=== PATIENT | female | born 1960 | race Caucasian/White ===

== ENCOUNTER 2019-11-10 17:17 | Observation (INO) | payer OTHER ==
[2019-11-10] MEDS ORDERED: SODIUM CHLORIDE 0.9% 1,000 ML IV STA (17:57)
[2019-11-10] MEDS ORDERED: IPRATROPIUM-ALBUTEROL 3 ML NEB INHALATION STA ×2 (17:57→20:48)
[2019-11-10] MEDS ORDERED: AZITHROMYCIN 500 MG in SODIUM CHLORIDE 0.9% 250 ML IVPB STA (17:57)
[2019-11-10] MEDS ORDERED: ACETAMINOPHEN TAB 325 MG TAB PO STA ×2 (17:57→22:49)
[2019-11-10] MEDS ORDERED: methylPREDNISolone SOD SUCCI 125 MG/2 ML VIAL IV STA (17:57)
--- NOTE | 2019-11-10 17:59 | ED ---
URI HPI - General Chief Complaint: Upper Respiratory Infection Stated Complaint: sinus infection,fever Time Seen by Provider: 11/10/19 17:33 Source: patient, RN notes reviewed, old records reviewed Mode of arrival: ambulatory Limitations: no limitations - History of Present Illness Initial Comments: This is a 59-year-old female to the ER for evaluation who presents today for evaluation regarding regarding upper respiratory infection cough and congestion history of COPD also febrile yesterday. No sick contacts no travel history no chest pain. Patient does feel weak and dehydrated MD Complaint: fever, cough, sore throat, nasal congestion, sinus pain -: days(s) Severity: moderate Severity scale (1-10): 7 Quality: burning Consistency: constant Improves With: nothing Worsens With: nothing Associated Symptoms: fever, chills, myalgias, rhinorrhea, sore throat Treatments Prior to Arrival: none - Related Data Home Medications Medication Instructions Recorded Confirmed Cyanocobalamin [Vitamin B-12] 1,000 mcg PO DAILY 10/19/13 10/20/13 HYDROcodone/APAP 10-325MG [[place] 1 tab PO DIRECTED 10/19/13 10/20/13 10-325] LORazepam [Ativan] 0.5 mg PO HS PRN 10/19/13 10/20/13 Methylphenidate HCl [Concerta] 72 mg PO DAILY 10/19/13 10/20/13 Morphine Sulfate ER [Ms Contin] 60 mg PO BID 10/19/13 10/20/13 Naproxen [Naprosyn] 375 mg PO TID 10/19/13 10/20/13 Polyethylene Glycol 3350 [Miralax] 17 gram PO DIRECTED 10/19/13 10/20/13 Pregabalin [Lyrica] 200 mg PO TID 10/19/13 10/20/13 Topiramate [Topamax] 25 mg PO BID 10/19/13 10/20/13 Venlafaxine HCl [Effexor] 225 mg PO DAILY 10/19/13 10/20/13 Verapamil HCl [Verapamil ER] 180 mg PO DAILY 10/19/13 10/19/13 lamoTRIgine [LaMICtal] 200 mg PO BID 10/19/13 10/19/13 Allergies Allergy/AdvReac Type Severity Reaction Status Date / Time No Known Allergies Allergy Verified 11/10/19 17:21 Review of Systems ROS Statement: Those systems with pertinent positive or pertinent negative responses have been documented in the HPI. ROS Other: All systems not noted in ROS Statement are negative. Past Medical History Past Medical History: Fibromyalgia, GERD/Reflux, Hypertension, Osteoarthritis (OA), Rheumatoid Arthritis (RA) Additional Past Medical History / Comment(s): ddd, osteoporosis History of Any Multi-Drug Resistant Organisms: None Reported Past Surgical History: Back Surgery Additional Past Surgical History / Comment(s): vaginal wall repair, abd tumor removed Past Psychological History: Anxiety, Bipolar, Depression Smoking Status: Current every day smoker Past Alcohol Use History: Occasional Past Drug Use History: None Reported General Exam Limitations: no limitations General appearance: alert, in no apparent distress, anxious Head exam: Present: atraumatic, normocephalic, normal inspection Eye exam: Present: normal appearance, PERRL, EOMI. Absent: scleral icterus, conjunctival injection, periorbital swelling ENT exam: Present: normal exam, mucous membranes moist Neck exam: Present: normal inspection. Absent: tenderness, meningismus, lymphadenopathy Respiratory exam: Present: normal lung sounds bilaterally. Absent: respiratory distress, wheezes, rales, rhonchi, stridor Cardiovascular Exam: Present: regular rate, normal rhythm, normal heart sounds. Absent: systolic murmur, diastolic murmur, rubs, gallop, clicks GI/Abdominal exam: Present: soft, normal bowel sounds. Absent: distended, tenderness, guarding, rebound, rigid Extremities exam: Present: normal inspection, full ROM, normal capillary refill. Absent: tenderness, pedal edema, joint swelling, calf tenderness Back exam: Present: normal inspection Neurological exam: Present: alert, oriented X3, CN II-XII intact Psychiatric exam: Present: normal affect, normal mood Skin exam: Present: warm, dry, intact, normal color. Absent: rash Course Vital Signs 11/10/19 11/10/19 11/10/19 17:21 18:24 18:48 Temperature 98 F Pulse Rate 64 59 L Respiratory 18 20 18 Rate Blood Pressure 114/70 O2 Sat by Pulse 97 Oximetry 11/10/19 11/10/19 11/10/19 18:55 19:24 20:33 Temperature 97.7 F Pulse Rate 60 70 68 Respiratory 16 20 20 Rate Blood Pressure 95/66 O2 Sat by Pulse 97 96 Oximetry - Reevaluation(s) Reevaluation #1: 11/10/19 19:28 Medical records reviewed Reevaluation #2: 11/10/19 20:47 Patient does not feel well still short of breath Reevaluation #3: 11/10/19 20:47 Spoke patient regarding findings, questions answered Medical Decision Making - Medical Decision Making 59 female Leticia with persistent shortness of breath, patient will be admitted f or breathing treatments, COPD exacerbation rule out CO VID - Lab Data Result diagrams: 11/10/19 18:26 11/10/19 18:43 Lab Results 11/10/19 11/10/19 11/10/19 Range/Units 18:26 18:26 18:43 WBC 16.0 H (3.8-10.6) k/uL RBC 5.15 (3.80-5.40) m/uL Hgb 14.9 (11.4-16.0) gm/dL Hct 45.7 (34.0-46.0) % MCV 88.8 (80.0-100.0) fL MCH 29.0 (25.0-35.0) pg MCHC 32.7 (31.0-37.0) g/dL RDW 13.0 (11.5-15.5) % Plt Count 232 (150-450) k/uL Neutrophils % 78 % Lymphocytes % 14 % Monocytes % 4 % Eosinophils % 2 % Basophils % 1 % Neutrophils # 12.5 H (1.3-7.7) k/uL Lymphocytes # 2.3 (1.0-4.8) k/uL Monocytes # 0.7 (0-1.0) k/uL Eosinophils # 0.3 (0-0.7) k/uL Basophils # 0.1 (0-0.2) k/uL PT 9.7 (9.0-12.0) sec INR 0.9 (<1.2) APTT 23.3 (22.0-30.0) sec Sodium 137 (137-145) mmol/L Potassium 4.5 (3.5-5.1) mmol/L Chloride 105 (98-107) mmol/L Carbon Dioxide 25 (22-30) mmol/L Anion Gap 7 mmol/L BUN 14 (7-17) mg/dL Creatinine 0.56 (0.52-1.04) mg/dL Est GFR (CKD-EPI)AfAm >90 (>60 ml/min/1.73 sqM) Est GFR (CKD-EPI)NonAf >90 (>60 ml/min/1.73 sqM) Glucose 102 H (74-99) mg/dL Calcium 9.8 (8.4-10.2) mg/dL Magnesium 2.3 (1.6-2.3) mg/dL Total Bilirubin 0.6 (0.2-1.3) mg/dL AST 25 (14-36) U/L ALT 8 (4-34) U/L Alkaline Phosphatase 141 H (38-126) U/L Lactate Dehydrogenase 603 (313-618) U/L C-Reactive Protein 156.1 H (<10.0) mg/L Total Protein 7.7 (6.3-8.2) g/dL Albumin 4.5 (3.5-5.0) g/dL - EKG Data -: EKG Interpreted by Me (EKG is sinus bradycardia 53 ND 140 QRS 82 QTC 429) - Radiology Data Radiology results: report reviewed (Chest x-rays negative for acute disease), image reviewed Disposition Clinical Impression: Viral infection, Acute upper respiratory infection, Acute exacerbation of chronic obstructive pulmonary disease (COPD) Narrative: ro COVID Disposition: ADMITTED IP TO THIS HOSP Condition: Fair Is patient prescribed a controlled substance at d/c from ED?: No Referrals: Ryan Harding MD [Primary Care Provider] - 1-2 days
[2019-11-10] MEDS: SODIUM CHLORIDE 0.9% 1,000 ML IV STA ×2 (18:21→21:14)
[2019-11-10 18:46] LABS: Basophils # (A) 0.1 k/uL (0-0.2); Basophils % (A) 1 %; Eosinophils # (A) 0.3 k/uL (0-0.7); Eosinophils % (A) 2 %; HCT 45.7 % (34.0-46.0); HGB 14.9 gm/dL (11.4-16.0); Lymphocytes # (A) 2.3 k/uL (1.0-4.8); Lymphocytes % (A) 14 %; MCHC 32.7 g/dL (31.0-37.0); MCV 88.8 fL (80.0-100.0); Mean Platelet Volume 8.5; Monocytes # (A) 0.7 k/uL (0-1.0); Monocytes % (A) 4 %; Neutrophils # (A) 12.5 k/uL (1.3-7.7); Neutrophils % (A) 78 %; Platelet Count 232 k/uL (150-450); RBC 5.15 m/uL (3.80-5.40)
[2019-11-10 18:58] LABS: INR 0.9 (<1.2); Partial Thromboplastin Time 23.3 sec (22.0-30.0); Prothrombin Time 9.7 sec (9.0-12.0)
[2019-11-10 19:00] LABS: ALT 8 U/L (4-34); AST 25 U/L (14-36); African American GFR (CKD) >90 (>60 ml/min/1.73 sqM); Albumin 4.5 g/dL (3.5-5.0); Alkaline Phosphatase 141 U/L (38-126); Anion Gap 7 mmol/L; Blood Urea Nitrogen 14 mg/dL (7-17); Calcium 9.8 mg/dL (8.4-10.2); Carbon Dioxide 25 mmol/L (22-30); Chloride 105 mmol/L (98-107); Glucose 102 mg/dL (74-99); LDH 603 U/L (313-618); Magnesium 2.3 mg/dL (1.6-2.3); Non-African American GFR(CKD) >90 (>60 ml/min/1.73 sqM); Potassium 4.5 mmol/L (3.5-5.1); Sodium 137 mmol/L (137-145); Total Bilirubin 0.6 mg/dL (0.2-1.3); Total Protein 7.7 g/dL (6.3-8.2)
[2019-11-10 19:10] LABS: C Reactive Protein 156.1 mg/L (<10.0)
--- NOTE | 2019-11-10 19:48 | XR ---
EXAMINATION TYPE: XR chest 1V portable DATE OF EXAM: 11/10/2019 COMPARISON: 02/29/2008 HISTORY: Pneumonia. Fever. TECHNIQUE: FINDINGS: Heart and mediastinum are normal. Lungs are clear. Diaphragm is normal. Bony thorax is inta ct. Pulmonary vascularity is normal. IMPRESSION: Normal chest. No adverse change.
[2019-11-10] MEDS ORDERED: PNEUMONIA PROTOCOL UTILIZED 1 EACH MISC PO PRN (20:39)
[2019-11-10] MEDS ORDERED: IPRATROPIUM-ALBUTEROL 3 ML NEB INHALATION PRN (20:48)
[2019-11-11] MEDS: methylPREDNISolone SOD SUCCI 125 MG/2 ML VIAL IV SCH ×5 (00:29→23:51)
[2019-11-11 02:57] LABS: Ferritin 112.8 ng/mL (10.0-291.0)
[2019-11-11] MEDS: SODIUM CHLORIDE 0.9% 1,000 ML IV SCH ×3 (03:53→17:29)
--- NOTE | 2019-11-11 07:54 | XR ---
EXAMINATION TYPE: XR chest 2V DATE OF EXAM: 11/11/2019 COMPARISON: Prior chest x-ray 11/10/2019 HISTORY: Pneumonia, shortness of breath and fevers TECHNIQUE: Frontal and lateral views of the chest are obtained. FINDINGS: The patient is rotated. There is no focal air space opacity, pleural effusion, or pneumotho rax seen. The cardiac silhouette size is within normal limits. The osseous structures are intact. IMPRESSION: No acute cardiopulmonary process.
[2019-11-11] MEDS ORDERED: traZODone HCL 50 MG TAB PO PRN (08:52)
[2019-11-11] MEDS ORDERED: ASCORBIC ACID 500 MG TAB PO PRN (08:52)
[2019-11-11] MEDS ORDERED: ONDANSETRON 4 MG TAB PO PRN (08:52)
[2019-11-11] MEDS: PANTOPRAZOLE 40 MG TABLET PO SCH (09:24)
[2019-11-11] MEDS: VERAPAMIL SR 240 MG TABLET.ER PO SCH (09:24)
[2019-11-11] MEDS: CHOLECALCIFEROL 1,000 UNIT TAB PO SCH (09:24)
[2019-11-11] MEDS: ACETAMINOPHEN TAB 325 MG TAB PO PRN ×3 (09:24→23:48)
[2019-11-11] MEDS: GABAPENTIN 300 MG CAP PO PRN ×2 (09:27→21:49)
[2019-11-11] MEDS ORDERED: HEPARIN SODIUM,PORCINE 5,000 UNIT/ML 1 ML VIAL SQ SCH (16:00)
[2019-11-11] MEDS ORDERED: AZITHROMYCIN 500 MG in SODIUM CHLORIDE 0.9% 250 ML IVPB SCH (18:00)
[2019-11-11] MEDS ORDERED: LACTULOSE 20 GM/30 ML CUP PO SCH (21:00)
[2019-11-11] MEDS: methocarbamoL 500 MG TAB PO PRN (21:49)
--- NOTE | 2019-11-11 22:35 | P.HPIM ---
History of Present Illness H&P Date: 11/11/19 Patient is a 59-year-old female with a known history of hypertension, fibromyalgia, rheumatoid arthritis, hypertension, chronic pain, anxiety/depression and bipolar disorder and so everyday smoker came to ER with complaints of shortness of breath. Patient does have cough with greenish sputum production and is getting worse for the past 1 week. Patient was also complaining of subjective fevers at home. Otherwise patient denied any recent travel no sick contacts. Patient is also complaining of generalized pain. Laboratory data showed WBC 16.0, hemoglobin 14.9 neutrophils 12.5 Alk phos 141 LDH 603 and CRP 156 Pro calcitonin 0.02 and coronavirus PCR not detected. Chest x-ray showed no acute cardiopulmonary process. EKG showed sinus bradycardia with heart rate 53 Review of Systems Constitutional: Patient does have subjective fevers and some chills. No general ized weakness or weight loss. Abdomen: Patient denied nausea vomiting and diarrhea and abdominal pain. Cardiovascular: Patient denies any chest pain or short of breath no palpitations. Respiratory: Cough with greenish sputum production and shortness of breath Neurologic: Patient denied any numbness or tingling headache. Musculoskeletal: Patient denies any complaints of joint swelling or deformity. Skin: Negative Psychiatric: Negative Endocrine: No heat or cold intolerance. No recent weight gain. Genitourinary: No dysuria or hematuria. All other 14 point ROS negative except the above Past Medical History Past Medical History: Fibromyalgia, GERD/Reflux, Hypertension, Osteoarthritis (OA), Rheumatoid Arthritis (RA) Additional Past Medical History / Comment(s): ddd, osteoporosis, diverticulosis History of Any Multi-Drug Resistant Organisms: None Reported Past Surgical History: Back Surgery Additional Past Surgical History / Comment(s): vaginal wall repair, abd tumor removed Past Anesthesia/Blood Transfusion Reactions: Previous Problems w/ Anesthesia Past Psychological History: Anxiety, Bipolar, Depression Smoking Status: Current every day smoker Past Alcohol Use History: Occasional Past Drug Use History: None Reported Medications and Allergies Home Medications Medication Instructions Recorded Confirmed Type Ascorbic Acid [Vitamin C] 500 mg PO DAILY PRN 11/10/19 11/10/19 History Buprenorphine HCl/Naloxone HCl 1 film SL BID PRN 11/10/19 11/10/19 History [Suboxone 8 mg-2 mg Sl Film] Cholecalciferol [Vitamin D3 (25 1,000 unit PO DAILY 11/10/19 11/10/19 History Mcg = 1000 Iu)] Gabapentin 600 mg PO TID PRN 11/10/19 11/10/19 History Lactulose 10 gm PO HS 11/10/19 11/10/19 History Omeprazole 20 mg PO BID 11/10/19 11/10/19 History Ondansetron HCl [Zofran] 4 mg PO Q8H PRN 11/10/19 11/10/19 History Verapamil HCl [Verapamil ER] 240 mg PO DAILY 11/10/19 11/10/19 History methocarbamoL [Robaxin] 500 mg PO BID PRN 11/10/19 11/10/19 History traZODone HCL 25 - 50 mg PO HS PRN 11/10/19 11/10/19 History Allergies Allergy/AdvReac Type Severity Reaction Status Date / Time No Known Allergies Allergy Verified 11/10/19 20:57 Physical Exam Vitals: Vital Signs Temp Pulse Pulse Resp BP BP Pulse Ox 11/11/19 08:39 97 11/11/19 07:00 98.2 F 70 18 147/84 96 11/11/19 00:26 98.0 F 53 L 22 107/60 95 11/10/19 23:15 98.0 F 63 22 100/59 96 11/10/19 22:58 98.4 F 66 20 96/62 96 11/10/19 22:09 98.6 F 72 20 95/68 96 11/10/19 21:43 63 16 11/10/19 21:29 64 16 11/10/19 21:00 20 105/87 11/10/19 20:33 97.7 F 68 20 96 11/10/19 19:24 70 20 95/66 97 11/10/19 18:55 60 16 11/10/19 18:48 59 L 18 11/10/19 18:24 20 11/10/19 17:21 98 F 64 18 114/70 97 Intake and Output 11/10/19 11/11/19 11/11/19 22:59 06:59 14:59 Intake Total 1200 Balance 1200 Intake: Amount of Fluid Infused ( 1200 ml) Other: # Voids 1 Weight 58.967 kg PHYSICAL EXAMINATION: Patient is lying in the bed comfortably, no acute distress, awake alert and oriented.. HEENT: Normocephalic. Neck is supple. Pupils reactive. Nostrils clear. Oral cavity is moist. Ears reveal no drainage. Neck reveals no JVD, carotid bruits, or thyromegaly. CHEST EXAMINATION: Trachea is central. Symmetrical expansion. Bilateral diffuse rhonchi and wheezing.. CARDIAC: Normal S1, S2 with no gallops. No murmurs ABDOMEN: Soft. Bowel sounds normal. No organomegaly. No abdominal bruits. Extremities: reveal no edema. No clubbing or cyanosis Neurologically awake, alert, oriented x3 with well-coordinated movements. No focal deficits noted Skin: No rash or skin lesions. Psychiatric: Coperative. Nonsuicidal. anxious Musculoskeletal: No joint swelling or deformity. Normal range of motion. Results CBC & Chem 7: 11/10/19 18:26 11/10/19 18:43 Labs: Abnormal Lab Results - Last 24 Hours (Table) 11/10/19 11/10/19 Range/Units 18:26 18:43 WBC 16.0 H (3.8-10.6) k/uL Neutrophils # 12.5 H (1.3-7.7) k/uL Glucose 102 H (74-99) mg/dL Alkaline Phosphatase 141 H (38-126) U/L C-Reactive Protein 156.1 H (<10.0) mg/L Thrombosis Risk Factor Assmnt - DVT/VTE Prophylaxis DVT/VTE Prophylaxis: Pharmacologic Prophylaxis ordered - Choose All That Apply Any of the Below Risk Factors Present?: Yes Each Factor Represents 1 point: Abnormal pulmonary function (COPD), Age 41-60 years Other Risk Factors: No Other congenital or acquired thrombophilia - If yes, enter type in comment: No Thrombosis Risk Factor Assessment Total Risk Factor Score: 2 Thrombosis Risk Factor Assessment Level: Low Risk Assessment and Plan Assessment: Acute COPD exacerbation due to purulent tracheobronchitis Rule out COVID-19 infection Fibromyalgia Chronic pain Rheumatoid arthritis Osteoarthritis GERD Anxiety/depression/bipolar disorder Ongoing nicotine addiction DVT prophylaxis with Lovenox. Plan: Patient will be continued on Solu-Medrol duo nebs and continue with home pain medications. Follow-up culture report. Follow-up COVID-19 PCR report. Continue with contact and droplet precautions. Smoking cessation has been counseled extensively. Further recommendations based on the clinical course. Time with Patient: Greater than 30
[2019-11-12] MEDS: methylPREDNISolone SOD SUCCI 125 MG/2 ML VIAL IV SCH ×2 (06:02→11:17)
[2019-11-12] MEDS ORDERED: BUTALB/APAP/CAFF 50-325-40MG TAB PO STA (06:11)
[2019-11-12 06:14] LABS: Glucose,Whole Blood 129 mg/dL (75-99)
[2019-11-12 06:34] LABS: Basophils % (A) 0 %; Eosinophils % (A) 0 %; HCT 39.8 % (34.0-46.0); HGB 12.8 gm/dL (11.4-16.0); Lymphocytes # (A) 2.3 k/uL (1.0-4.8); Lymphocytes % (A) 10 %; MCH 28.6 pg (25.0-35.0); MCHC 32.1 g/dL (31.0-37.0); Mean Platelet Volume 9.1; Monocytes # (A) 1.1 k/uL (0-1.0); Monocytes % (A) 5 %; Neutrophils % (A) 84 %; Platelet Count 261 k/uL (150-450); RBC 4.47 m/uL (3.80-5.40); WBC 22.7 k/uL (3.8-10.6)
[2019-11-12] MEDS: CHOLECALCIFEROL 1,000 UNIT TAB PO SCH (07:33)
[2019-11-12] MEDS: PANTOPRAZOLE 40 MG TABLET PO SCH (07:33)
[2019-11-12] MEDS: VERAPAMIL SR 240 MG TABLET.ER PO SCH (07:34)
[2019-11-12 07:40] VITALS: PULSE 57; RESP 18
[2019-11-12] MEDS ORDERED: ENOXAPARIN 40 MG/0.4 ML SYRINGE SQ SCH (09:00)
[2019-11-12 11:36] LABS: African American GFR (CKD) 122.8 (60.0-200.0); Calcium 9.4 mg/dL (8.7-10.3); Non-African American GFR(CKD) 105.9 (60.0-200.0); Potassium 4.4 mmol/L (3.5-5.5)
[2019-11-12 15:03] VITALS: BP 150/76; TEMP 97.8
[2019-11-12] MEDS: ACETAMINOPHEN TAB 325 MG TAB PO PRN (15:41)
[2019-11-12] MEDS: GABAPENTIN 300 MG CAP PO PRN (15:41)
[2019-11-12] MEDS: methocarbamoL 500 MG TAB PO PRN (15:42)
[2019-11-12] MEDS ORDERED: AZITHROMYCIN 500 MG TAB PO SCH (18:00)
--- NOTE | 2019-11-17 13:57 | P.DS ---
Providers Date of admission: 11/12/19 10:04 Expected date of discharge: 11/12/19 Attending physician: Saima Pickard [facility] Course: Discharge diagnosis Acute COPD exacerbation due to purulent tracheobronchitis Ruled out COVID-19 infection Fibromyalgia Chronic pain Rheumatoid arthritis Osteoarthritis GERD Anxiety/depression/bipolar disorder Ongoing nicotine addiction DVT prophylaxis with Lovenox. Hospital course Patient is a 59-year-old female with a known history of hypertension, fibromyalgia, rheumatoid arthritis, hypertension, chronic pain, anxiety/depression and bipolar disorder and so everyday smoker came to ER with complaints of shortness of breath. Patient does have cough with greenish sputum production and is getting worse for the past 1 week. Patient was also complaining of subjective fevers at home. Otherwise patient denied any recent travel no sick contacts. Patient is also complaining of generalized pain. Laboratory data showed WBC 16.0, hemoglobin 14.9 neutrophils 12.5 Alk phos 141 LDH 603 and CRP 156 Pro calcitonin 0.02 and coronavirus PCR not detected. Chest x-ray showed no acute cardiopulmonary process. EKG showed sinus bradycardia with heart rate 53 Patient was continued on Solu-Medrol duo nebs and continue with home pain medications. Patient was continued on antibiotics in the form of ceftriaxone and azithromycin. Blood cultures negative so far. Sputum cultures not updated yet. Patient otherwise did improve clinically and wants to be discharged home. Cough improved as well. Patient has been afebrile overnight. Patient is also complaining of sinus pain and postnasal discharge. Patient will be continued on tapering steroid course and antibiotics in the form of Augmentin. Patient did refuse IV Solu-Medrol while in the hospital saying that it causes her headache. No complaints of chest pain or worsening shortness of breath. Tolerating oral diet and able to ambulate in the room. Patient is being discharged home today. Smoking cessation has been counseled extensively. PHYSICAL EXAMINATION: Patient is lying in the bed comfortably, no acute distress, awake alert and oriented.. HEENT: Normocephalic. Neck is supple. Pupils reactive. Nostrils clear. Oral cavity is moist. Ears reveal no drainage. Neck reveals no JVD, carotid bruits, or thyromegaly. CHEST EXAMINATION: Trachea is central. Symmetrical expansion. mild expiratory wheeze otherwise Lung poe clear to auscultation and percussion. CARDIAC: Normal S1, S2 with no gallops. No murmurs ABDOMEN: Soft. Bowel sounds normal. No organomegaly. No abdominal bruits. Extremities: reveal no edema. No clubbing or cyanosis Neurologically awake, alert, oriented x3 with well-coordinated movements. No focal deficits noted Skin: No rash or skin lesions. Psychiatric: Coperative. Nonsuicidal Musculoskeletal: No joint swelling or deformity. Normal range of motion. Discharge vitals reviewed Patient Condition at Discharge: Fair Plan - Discharge Summary Discharge Rx Participant: Yes New Discharge Prescriptions: New Amoxicillin/Potassium Clav [Augmentin 875-125 Tablet] 1 tab PO Q12HR 8 Days #16 tab predniSONE 40 mg PO DAILY 4 Days #16 tab Albuterol Sulfate [Ventolin HFA] 1 - 2 puff INHALATION Q6H PRN #1 inhaler PRN Reason: Shortness Of Breath Continue Gabapentin 600 mg PO TID PRN PRN Reason: Pain Cholecalciferol [Vitamin D3 (25 Mcg = 1000 Iu)] 1,000 unit PO DAILY Ascorbic Acid [Vitamin C] 500 mg PO DAILY PRN PRN Reason: COLDS traZODone HCL 25 - 50 mg PO HS PRN PRN Reason: SLEEP Verapamil HCl [Verapamil ER] 240 mg PO DAILY methocarbamoL [Robaxin] 500 mg PO BID PRN PRN Reason: Muscle Pain Ondansetron HCl [Zofran] 4 mg PO Q8H PRN PRN Reason: Nausea And Vomiting Omeprazole 20 mg PO BID Lactulose 10 gm PO HS Buprenorphine HCl/Naloxone HCl [Suboxone 8 mg-2 mg Sl Film] 1 film SL BID PRN PRN Reason: Pain Discharge Medication List Ascorbic Acid [Vitamin C] 500 mg PO DAILY PRN 11/10/19 [History] Buprenorphine HCl/Naloxone HCl [Suboxone 8 mg-2 mg Sl Film] 1 film SL BID PRN 11/10/19 [History] Cholecalciferol [Vitamin D3 (25 Mcg = 1000 Iu)] 1,000 unit PO DAILY 11/10/19 [History] Gabapentin 600 mg PO TID PRN 11/10/19 [History] Lactulose 10 gm PO HS 11/10/19 [History] Omeprazole 20 mg PO BID 11/10/19 [History] Ondansetron HCl [Zofran] 4 mg PO Q8H PRN 11/10/19 [History] Verapamil HCl [Verapamil ER] 240 mg PO DAILY 11/10/19 [History] methocarbamoL [Robaxin] 500 mg PO BID PRN 11/10/19 [History] traZODone HCL 25 - 50 mg PO HS PRN 11/10/19 [History] Albuterol Sulfate [Ventolin HFA] 1 - 2 puff INHALATION Q6H PRN #1 inhaler 11/12/19 [Rx] Amoxicillin/Potassium Clav [Augmentin 875-125 Tablet] 1 tab PO Q12HR 8 Days #16 tab 11/12/19 [Rx] predniSONE 40 mg PO DAILY 4 Days #16 tab 11/12/19 [Rx] Follow up Appointment(s)/Referral(s): Ryan Harding MD [Primary Care Provider] - 1-2 days Discharge Disposition: HOME SELF-CARE
== END 2019-11-12 16:53 | disposition home or self-care (01) ==
LOC: EC 17:17 → 4SSUR 20:42 → OBSVTOIN 11-12 10:04 → INTOOBSV 11-12 10:04 → UNDODISIN 11-12 16:53
PROVIDERS: ADMIT Hospitalist; ATTEND Hospitalist
DX: J44.1 Chronic obstructive pulmonary disease with (acute) exacerbation (principal); Z20.828 Contact with and (suspected) exposure to other viral communicable diseases; M79.7 Fibromyalgia; G89.29 Other chronic pain; M06.9 Rheumatoid arthritis, unspecified; M19.90 Unspecified osteoarthritis, unspecified site; K21.9 Gastro-esophageal reflux disease without esophagitis; F41.9 Anxiety disorder, unspecified; F31.9 Bipolar disorder, unspecified; F17.200 Nicotine dependence, unspecified, uncomplicated; I10 Essential (primary) hypertension; M51.9 Unspecified thoracic, thoracolumbar and lumbosacral intervertebral disc disorder; M81.0 Age-related osteoporosis without current pathological fracture; R00.1 Bradycardia, unspecified; K57.90 Diverticulosis of intestine, part unspecified, without perforation or abscess without bleeding; Z79.899 Other long term (current) drug therapy; Z79.1 Long term (current) use of non-steroidal anti-inflammatories (NSAID); Z79.891 Long term (current) use of opiate analgesic; Z98.890 Other specified postprocedural states; Z71.6 Tobacco abuse counseling
CPT/HCPCS: 96376; 96366 ×3; 96372; 96361; 96365; 96367; 96375; 99285; 36415; 94640 ×2; 94760; 93005; 80053; 80048; 82728; 83615; 83735; 85025 ×2; 85610; 85730; 86140; 87040; 84145; 71045; 71046; G0378 ×3; U0003; J2930 ×2; J0456 ×2; J0696 ×3; J1650

== ENCOUNTER → 2020-10-21 | Outpatient (CLI) | payer OTHER ==
[2020-10-21 09:45] VITALS: TEMP 98.4
[2020-10-21 09:55] VITALS: RESP 18
--- NOTE | 2020-10-21 10:08 | P.PAINCN ---
History of Present Illness - Reason for Consult Consult date: 10/21/20 - History of Present Illness This is 60 years old female with a chronic history of severe upper back and mid back and low back pain, started more than 15 years ago, patient had a lumbar fusion surgery in 2007 and she continued to have, severe pain in the upper mid and low back area, the pain is constant and increases with any activity interference with the quality of life, he denies any motor deficits she denies any fever or night sweats, patient was addicted to opioid and she is currently on Paxil treatment program, patient tried physical therapy and home exercise sheet does daily stretching exercises and she is currently on multiple pain medication that any significant improvement she is currently on Suboxone, gabapentin,and Robaxin, Motrin, Tylenol and,CBD , denies any side effect of the medication Past Medical History Past Medical History: Fibromyalgia, GERD/Reflux, Hyperlipidemia, Hypertension, Osteoarthritis (OA), Pneumonia Additional Past Medical History / Comment(s): ddd, osteoporosis, diverticulosis, migraines, last seizure 5 yrs ago, History of Any Multi-Drug Resistant Organisms: None Reported Past Surgical History: Back Surgery, Hysterectomy, Tonsillectomy Additional Past Surgical History / Comment(s): rectocle repair, abd benign tumor removed, titanium in lumbar, Past Anesthesia/Blood Transfusion Reactions: Previous Problems w/ Anesthesia, Postoperative Nausea & Vomiting (PONV) Additional Past Anesthesia/Blood Transfusion Reaction / Comm: "i don't come out well"- headaches and nausea Past Psychological History: ADD/ADHD, Anxiety, Bipolar, Depression Additional Psychological History / Comment(s): OCD, no longer being treated Smoking Status: Current every day smoker Past Alcohol Use History: Rare Additional Past Alcohol Use History / Comment(s): smokes 1/2-1 PPD, has smoked since age 15 Past Drug Use History: None Reported Additional Drug Use History / Comment(s): CBD oil - Past Family History Mother Family Medical History: No Reported History Medications and Allergies Home Medications Medication Instructions Recorded Confirmed Type Gabapentin 600 mg PO TID PRN 11/10/19 10/17/20 History Lactulose 10 gm PO HS 11/10/19 10/17/20 History Omeprazole 20 mg PO BID 11/10/19 10/17/20 History Ondansetron HCl [Zofran] 4 mg PO Q8H PRN 11/10/19 10/17/20 History Verapamil HCl [Verapamil ER] 240 mg PO DAILY 11/10/19 10/17/20 History methocarbamoL [Robaxin] 500 mg PO BID PRN 11/10/19 10/17/20 History Albuterol Sulfate [Ventolin HFA] 1 - 2 puff INHALATION Q6H PRN #1 11/12/19 10/17/20 Rx inhaler Acetaminophen [Tylenol Extra 500 mg PO DIRECTED PRN 10/17/20 10/17/20 History Strength] Alendronate Sodium [Fosamax] 70 mg PO MO 10/17/20 10/17/20 History Buprenorphine HCl/Naloxone HCl 1 each SL QAM 10/17/20 10/17/20 History [Suboxone 8 mg-2 mg Sl Film] Cannabidiol (Cbd) [Epidiolex] 0 mg PO HS 10/17/20 10/17/20 History Ibuprofen 200 mg PO Q6H PRN 10/17/20 10/17/20 History Allergies Allergy/AdvReac Type Severity Reaction Status Date / Time Nuppfgt-Yhg-Nah Reductase Allergy Nausea,head Verified 10/17/20 13:47 Inhibitor ache Physical Exam Vitals: Vital Signs Temp Resp Pulse Ox 10/21/20 09:40 98.4 F 18 97 Physical Examinations : -Constitutiona : Cooperative , not in acute distress . -HEENT : nech : supple , no Lymphadenopathy , normal thyroid size . : eyes : no ptosis , no icterus, no photophobia . - neurologic : Cranial nerve II to XII intact , no focal neurological deffecit . -psychatric : alert , oriented X 3 , appropriate affect , intact judgment and insight . -Lymphatic : no Lymphadenopathy . - musculoskeltal : Cervical Spine motor stregnth in the deltoid and biceps, normal right side , normal Left side motor stregnth biceps and the wrist extensors normal right side ,normal left side . motor stregnth in the triceps muscle . normal Right side , normal Left side Thoracic spine= Flexion and extension of the torso associated with severe pain facet loading test = positive frome T5- 10 Lumber spine moter stegnth lower extremities ,thigh and legs 5/5 Right side , 5/5 Left side deep tendon reflexes : normal Knee Jerk , normal ankle Jerk lumber facet Loading Test =positive Right , positive Left Range of motion of the lumbar spine Flexion 30 degrees, extension 10 degrees strait leg raising test = positive at degree Fabere test= positive Right , and positive LT . Sever tenderness over the Sacroiliac joint on the Right , and Left sides Gaenslen test= positive right ,and positive left . Seated flexion test= positive right ,and positive Left . Distraction test= positive bilaterally Sacroiliac compression test= positive bilaterally Results Comments: MRI of the lumbar spine done in 2016 revealed that showed multilevel lumbar degenerative disc disease and multilevel lumbar spondylosis with facet arthropathy and history of fusion in the lumbar area Assessment and Plan Plan: Assessment and plan=1-thoracic spondylosis with thoracic facet arthropathy. 2-degenerative disc disease thoracic spine. 3-Lumbar spondylosis with lumbar facet arthropathy. 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 Iwill Order MRI of the thoracic spine for evaluation and patient in the future can be candidate for diagnostic medial branch block and possible RFA thoracic medial branch Time with Patient: Greater than 30 PQRS Measure Charge Sheet Measure #130: Documentation of Current Meds in Medical Chart: Patient's medications documented in chart Measure #226: Tobacco Use: Screen & Cessation Intervention: Pt screened for tobacco use AND intervention given Measure #111: Pneumonia Vaccination: Pneumococcal vaccine NOT administered or previously given Measure #47: Advance Care Plan: Advance care planning discussed & documented, pt chose/unable to give Measure #412: Opioid Treatment Agreement: No documentation of signed opioid treatment agreement Measure #408: Opioid Therapy Follow-up Evaluation: Patient had NO f/u eval minimum every 3 months during opioid therapy Measure #317: Preventitive Care & Scrn High Bld Press & F/U: Normal blood pressure, f/u not required Measure #128: Body Mass Index (BMI) Screening & Follow-up: BMI documented ABOVE normal parameters - f/u documented Measure #131: Pain Assessment & Follow-up: Pain positive & plan documented, Follow-up scheduled Measure #431: Unhealthy Alcohol Use Preventative Care & Scrn: Patient not identified as an unhealthy alcohol user PQRS Narrative: Smoking Status Current every day smoker Pain Intensity [Back] 8 Scale Used Numeric (1 - 10) Hx Alcohol Use (MH) Yes Home Medications: Ambulatory Orders Gabapentin 600 mg PO TID PRN 11/10/19 Lactulose 10 gm PO HS 11/10/19 Omeprazole 20 mg PO BID 11/10/19 Ondansetron HCl [Zofran] 4 mg PO Q8H PRN 11/10/19 Verapamil HCl [Verapamil ER] 240 mg PO DAILY 11/10/19 methocarbamoL [Robaxin] 500 mg PO BID PRN 11/10/19 Albuterol Sulfate [Ventolin HFA] 1 - 2 puff INHALATION Q6H PRN #1 inhaler 11/12/19 Acetaminophen [Tylenol Extra Strength] 500 mg PO DIRECTED PRN 10/17/20 Alendronate Sodium [Fosamax] 70 mg PO MO 10/17/20 Buprenorphine HCl/Naloxone HCl [Suboxone 8 mg-2 mg Sl Film] 1 each SL QAM 10/17/20 Cannabidiol (Cbd) [Epidiolex] 0 mg PO HS 10/17/20 Ibuprofen 200 mg PO Q6H PRN 10/17/20
[2020-10-21 10:18] VITALS: BP 131/70; PULSE 70
== END ==
LOC: PNWHC3 09:27
PROVIDERS: ATTEND Specialist
DX: M47.814 Spondylosis without myelopathy or radiculopathy, thoracic region (principal); M51.34 Other intervertebral disc degeneration, thoracic region; M47.816 Spondylosis without myelopathy or radiculopathy, lumbar region; M96.1 Postlaminectomy syndrome, not elsewhere classified; E78.5 Hyperlipidemia, unspecified; I10 Essential (primary) hypertension; M19.90 Unspecified osteoarthritis, unspecified site; K21.9 Gastro-esophageal reflux disease without esophagitis; Z87.39 Personal history of other diseases of the musculoskeletal system and connective tissue; G43.909 Migraine, unspecified, not intractable, without status migrainosus; F90.9 Attention-deficit hyperactivity disorder, unspecified type; F31.9 Bipolar disorder, unspecified; F41.9 Anxiety disorder, unspecified; F17.210 Nicotine dependence, cigarettes, uncomplicated; Z79.899 Other long term (current) drug therapy; Z88.8 Allergy status to other drugs, medicaments and biological substances
CPT/HCPCS: 99211

== ENCOUNTER → 2022-12-17 | Outpatient (CLI) | payer OTHER ==
[2022-12-17 14:26] VITALS: BP 118/62; PULSE 77; RESP 15; TEMP 98.6
--- NOTE | 2022-12-17 15:08 | P.PAINPG ---
PQRS Measure Charge Sheet Comment: A 62 yr old female with a history of severe and chronic LBP secondary to lumbar DDD and spondylosis with facet arthropathy without myelopathy presents today for LBP. She admits she's had a BL RFA of the L3-L4, L4-L5, L5-S1 approx 5-6 yrs ago in [place], [place] where she admits she experienced 90% pain relief x 2 1/2 yrs s/p procedure. Pain level is provoked at 6 /10 in intensity, constant, predominantly axial, localized in the lumbar spine, stabbing/ sharp in character w shooting towards up the spine. Pain is provoked by . Pain is alleviated with medications (Suboxone, Robaxin & Neurontin 600mg #[address] Harding), PT x 12 wks which ended in Oct 2022, heat, ice, reclining, repositioning and rest. Oswestry axial pain score at 24. Interventional pain procedures completed include BL RFA L3-L5 Patient is currently on Suboxone 8mg-2mg #60, Neurontin 600mg #90, Robaxin Patient denies any side effects of the medication(s), denies excessive drowsiness or sleepiness, denies suicidal ideation and reports that the current pain medication is helping to control the pain and improve activities of daily living. Patient denies any motor or sensory deficits. Patient denies any fever or night sweats, denies any change in the bowel movements or urination. Physical Examination: -Constitutional: Cooperative. Not in acute distress . - Neurologic: Cranial nerve II to XII intact. No focal neurological deficits. - Psychatric: Alert & oriented x 3. Matching mood & appropriate affect. Judgment and insight intact. - Musculoskeletal: Cervical spine: Muscle bulk/ tone/ strength in the bilateral upper extremities normal Vertebral body tenderness to palpation over Spurling test positive Distraction test positive Facet loading test positive TTP Thoracic spine Muscle bulk / tone/ strength in the bilateral paraspinal muscles normal Vertebral body tender to palpation over Facet loading test positive TTP Lumbar spine: Motor bulk/ tone/ strength lower extremities , thigh and legs : 5/5 Deep tendon reflexes : Normal Knee Jerk. Normal Ankle Jerk . Vertebral body tenderness to palpation over Muñoz Test positive Lumbar Facet Loading Test positive over BL L4-L5, L5-S1 Straight Leg Raise: positive at 30 degrees right side/ left side Gaenslen's Test positive Sacral spine : Severe tenderness over the Sacroiliac joint: right side / left side Range of motion: Flexion of the lumbar spine <60 degrees Range of motion: Extension of the lumbar spine <20 degrees Gaenslen's Test positive right side / left side Andreas test: positive right side / left side Thigh Thrust Test positive right side / left side Sacral Thrust Test positive right side / left side Assessment and plan: Chronic LBP secondary to lumbar DDD, spondylosis with facet arthropathy without myelopathy Will obtain records from hospital/ doctor's office where her last RFA BL L2-L5 was performed 5-6 yrs ago. All questions answered. I have spent less than 30 minutes on patient care today. Dr Watson was available by phone for the evaluation of this patient. The time was used to review the medical records including relevant urine studies and Prescription history (MAPs), review of the available imaging, evaluation and examination of the patient, coordination of care with the medical staff and if applicable referring physicians, as well as creation of the medical record PQRS Narrative: Smoking Status Current every day smoker Hx Alcohol Use (MH) Yes Home Medications: Ambulatory Orders Gabapentin 600 mg PO TID PRN 11/10/19 Lactulose 10 gm PO HS 11/10/19 Omeprazole 20 mg PO BID 11/10/19 Verapamil HCl [Verapamil ER] 240 mg PO DAILY 11/10/19 methocarbamoL [Robaxin] 500 mg PO BID PRN 11/10/19 ondansetron HCL [Zofran] 4 mg PO Q8H PRN 11/10/19 Albuterol Sulfate [Ventolin HFA] 1 - 2 puff INHALATION Q6H PRN #1 inhaler 11/12/19 Acetaminophen [Tylenol Extra Strength] 500 mg PO DIRECTED PRN 10/17/20 Alendronate Sodium [Fosamax] 70 mg PO MO 10/17/20 Buprenorphine HCl/Naloxone HCl [Suboxone 8 mg-2 mg Sl Film] 1 each SL QAM 10/17/20 Cannabidiol (Cbd) [Epidiolex] 0 mg PO HS 10/17/20 Ibuprofen 200 mg PO Q6H PRN 10/17/20 Controlled Substance Measures - Controlled Substance Measures Is patient prescribed a controlled substance at discharge?: No
== END ==
LOC: PNWHC3 13:11
PROVIDERS: ATTEND Specialist
DX: M51.37 Other intervertebral disc degeneration, lumbosacral region (principal); M47.817 Spondylosis without myelopathy or radiculopathy, lumbosacral region; G89.29 Other chronic pain; F17.200 Nicotine dependence, unspecified, uncomplicated; Z88.8 Allergy status to other drugs, medicaments and biological substances
CPT/HCPCS: 99211

== ENCOUNTER → 2023-07-06 | Day surgery (SDC) | payer OTHER ==
[2023-07-01 15:05] VITALS: BMI 28.7
[~2023-07-06] MED LIST: DEXAMETHASONE SOD PHOSPHATE 10 MG/ML 1 ML VIAL ONE; IOPAMIDOL M200 10 ML VIAL ONE; LACTATED RINGERS 1,000 ML IV SCH; ROPIVACAINE 5MG/ML 20ML VIAL ONE
--- NOTE | 2023-07-06 13:55 | P.PCN ---
Date of Procedure: 07/06/23 Anesthesia: local (Lidocaine 1%) Surgeon: Jenise Salazar Pathology: none sent Condition: stable Disposition: PACU Description of Procedure: PREOPERATIVE DIAGNOSIS: thoracic spine DDD, thoracic spondylosis without myelopathy POSTOPERATIVE DIAGNOSIS: same as above PROCEDURE thoracic epidural steroid injection in the interlaminar approach under fluoroscopic guidance at T6-7 level ANESTHESIA: Local only with 1% lidocaine EBL: Minimal PROCEDURE INDICATION: The patient with low back pain and radiculitis symptoms unresponsive to conservative treatment. Fluoroscopy was used to optimize visualization of the needle placement and to maximize safety. PROCEDURE DESCRIPTION / TECHNIQUE: The patient was seen and identified in the preoperative area. Risks, benefits, complications including but not limited to infections ,bleeding ,allergic reaction to the medications ,nerve damage and not complete pain relief , and alternatives were discussed with the patient. The patient agreed to proceed with the procedure and signed the consent. IV was started, and vital signs were stable. Patient was taken to the OR and time out was completed. The patient was placed in the prone position on procedure table and a pillow was placed under the abdomen to reduce lumbar lordosis. The lumbosacral area was prepped and draped in the usual sterile fashion with ChloraPrep.Patient was closely monitored during the procedure. Conscious sedation was used during the procedure to decrease patients anxiety. Vital signs were monitered during the entire procedure. Using anterior-posterior fluoroscopy, the T6-7 interlaminar space was identified and the skin over this site was marked and then infiltrated with 1% lidocaine subcutaneously. Subsequently, a 20-gauge Tuohy epidural needle was inserted and advanced toward the epidural space using the Loss of resistance to air technique and guided by AP and lateral fluoroscopy. The correct needle position in the epidural space was verified with the injection of 1 mL of the water soluble contrast dye Omnipaque 180 contrast and observing an excellent epidurogram with the epidural spread of the dye, after negative aspiration for blood and CSF and in the absence of paresthesias. Again after negative aspiration, a 5 ml mixture containing 10 mg of Decadron and 3 ml of preservative free Normal Saline, and 1 ml of preservative free Ropivacaine 0.5% solution was injected and a washout of epidurogram was seen. Needle was withdrawn intact, skin was cleansed, and bandages were applied. patient tolerated procedure well and was transferred to PACU in stable condition.A copy of the needle placement picture was saved to the fluoroscopy machine. COMPLICATIONS: None
--- NOTE | 2023-07-06 14:14 | FL ---
EXAMINATION TYPE: FL guided pain mgmt statistic DATE OF EXAM: 07/06/2023 HISTORY: Fluoroscopy time Total dose area product (DAP) in uGy*m?, mGy*cm? (or similar): 0.58374 IMPRESSION: 1. Fluoroscopy time.
[2023-07-06 14:42] VITALS: BP 116/74; PULSE 65; RESP 14
== END ==
LOC: ORPAIN 12:39
PROVIDERS: ATTEND Anesthesiology
DX: M47.24 Other spondylosis with radiculopathy, thoracic region (principal); M51.14 Intervertebral disc disorders with radiculopathy, thoracic region; Z88.8 Allergy status to other drugs, medicaments and biological substances
CPT/HCPCS: 62321; J1100; Q9966; J2795